=== PATIENT | female | born 1995 | race African-American/Black ===

== ENCOUNTER 2020-06-04 18:43 | Emergency (ER) | payer OTHER ==
[~2020-06-04] VITALS: Ht 160 cm; Wt 79.4 kg
[2020-06-04 18:47] VITALS: BP 109/62
[2020-06-04] MEDS: CYCLOBENZAPRINE 10 MG TAB PO ONE (19:51)
[2020-06-04] MEDS: KETOROLAC 30 MG/ML VIAL IM ONE (19:51)
[2020-06-04 20:53] LABS: APPEARANCE,URINE CLEAR (CLEAR); BILIRUBIN,URINE 1+ (NEGATIVE); BLOOD, URINE NEGATIVE (NEGATIVE); COLOR,URINE DARK YELLOW (YELLOW); LEUKOCYTE ESTERASE ,URINE NEGATIVE (NEGATIVE); NITRITE, URINE NEGATIVE (NEGATIVE); UGLUCOSE NEGATIVE (NEGATIVE)
[2020-06-04 21:40] VITALS: BP 110/78
== END 2020-06-04 21:33 | disposition home or self-care (01) ==
LOC: MED 18:43
DX: S39.012A Strain of muscle, fascia and tendon of lower back, initial encounter (principal); J45.909 Unspecified asthma, uncomplicated; X58.XXXA Exposure to other specified factors, initial encounter; Y93.89 Activity, other specified; Y92.89 Other specified places as the place of occurrence of the external cause; Y99.8 Other external cause status
CPT/HCPCS: 72110; 81003; 81025; 96372; 99284; J1885